=== PATIENT | male | born 1990 ===

== ENCOUNTER 2019-08-21 08:09 | Emergency (ER) | payer OTHER ==
[~2019-08-21] VITALS: Ht 170.2 cm; Wt 86.2 kg
== END 2019-08-21 11:41 | disposition home or self-care (01) ==
LOC: ER 08:09
DX: M62.838 Other muscle spasm (principal)

== ENCOUNTER 2023-01-23 13:40 | Emergency (ER) | payer OTHER ==
[~2023-01-23] VITALS: Ht 167.6 cm; Wt 81.6 kg
== END 2023-01-23 20:21 | disposition home or self-care (01) ==
LOC: ER 13:40
DX: A09 Infectious gastroenteritis and colitis, unspecified (principal); Z88.0 Allergy status to penicillin